=== PATIENT | male | born 1950 | race Caucasian/White ===

== ENCOUNTER → 2018-01-30 16:23 | Outpatient (CLI) | payer MEDICARE, SELFPAY ==
[2018-01-30 17:06] LABS: Absolute Lymphocyte Count 2.24 X10^3/ul (0.83-4.51); Absolute Neutrophil Count 3.9 X10^3/uL (2.0-7.7); Basophil# 0.03 X10^3/uL; Basophil% 0.4 % (0-1); Eosinophils% 4.2 % (0-5); Hematocrit 41.7 % (40-54); Hemoglobin 13.7 g/dl (13.0-16.5); Lymphocyte # 2.24 X10^3/ul (4.0); Lymphocyte % 31.5 % (19-41); Mean Corp Hgb Conc 32.9 g/gl (32-36); Mean Corpuscular Hgb 31.7 pg (27.0-32.0); Mean Corpuscular Volume 96.5 fL (80-94); Mean Platelet Vol. 9.3 fl (6.2-12.0); Monocyte# 0.68 X10^3/uL; Monocyte% 9.6 % (0-10); Neutrophil # 3.87 X10^3/uL (2.7-7.7); Neutrophil % 54.3 % (47-70); Platelet Count 167 K/mm3 (150-450); RBC Distribution Width CV 13.5 % (11.6-14.6); RBC Distribution Width SD 48.2 fl (35.1-43.9); Red Blood Count 4.32 M/mm3 (4.6-6.2); White Blood Count 7.1 K/mm3 (4.4-11.0)
[2018-01-30 17:40] LABS: ALB/GLOB Ratio 0.8 RATIO (0.9-2.4); AST(SGOT) 31 U/L (15-37); Alanine Aminotransfer ALT/SGPT 28 U/L (16-61); Albumin, Serum 3.3 g/dL (3.2-5.0); Alkaline Phosphatase 126 U/L (45-117); Anion Gap 7 (5-15); BUN 12 mg/dL (7-18); BUN/Creat Ratio 11.4 RATIO (10-20); Calcium,Total 8.8 mg/dL (8.5-10.1); Chloride 104 mmol/L (98-107); Creatinine, Serum 1.05 mg/dL (0.70-1.30); EST Glomerular Filtration Rate 74 mL/min (>60); Est Glom Filt Rate - Afr Amer 90 mL/min (>60); Globulin 4.1 g/dL (2.2-4.2); Glucose 94 mg/dL (74-106); PSA,Total - Annual Screen 1.22 ng/mL (0.00-4.00); Potassium 4.7 mmol/L (3.5-5.1); Protein, Total 7.4 g/dL (6.4-8.2); Sodium Level 138 mmol/L (136-145); Thyroid Stim Hormone (TSH) 0.67 uIU/mL (0.358-3.74)
[2018-01-30 17:48] LABS: POSITIVE COUNT NO; POSITIVE DIFFERENTIAL NO; POSITIVE MORPHOLOGY NO
== END ==
PROVIDERS: Visit Provider Family Medicine Geriatric Medicine
DX: I10 Essential (primary) hypertension (principal); E23.6 Other disorders of pituitary gland; Z12.5 Encounter for screening for malignant neoplasm of prostate
CPT/HCPCS: 36415; 80053; 84153; 84403; 84443; 85025; G0103

== ENCOUNTER → 2018-09-04 | Outpatient (CLI) | payer MEDICARE, SELFPAY ==
[2018-09-04 17:24] LABS: COTININE Drug Screen Positive (<200 ng/mL)
== END | disposition home or self-care (01) ==
LOC: POLAB3 14:26
PROVIDERS: Visit Provider Family Medicine Geriatric Medicine
DX: F17.200 Nicotine dependence, unspecified, uncomplicated (principal)
CPT/HCPCS: 80307

== ENCOUNTER → 2018-10-28 | Outpatient (CLI) | payer MEDICARE, SELFPAY ==
[2018-10-28 18:13] LABS: COTININE Drug Screen Negative (<200 ng/mL)
== END | disposition home or self-care (01) ==
LOC: LABSPEC 14:11
PROVIDERS: Visit Provider Family Medicine Geriatric Medicine
DX: F17.200 Nicotine dependence, unspecified, uncomplicated (principal)
CPT/HCPCS: 80307

== ENCOUNTER → 2018-11-27 14:00 | Outpatient (CLI) | payer MEDICARE, SELFPAY ==
--- NOTE | 2018-11-27 14:02 | RAD_ITS ---
STUDY: X-RAY - LEFT KNEE REASON FOR EXAM: Male, 68 years old. Knee pain TECHNIQUE: 4 view(s) of the knee. COMPARISON: None. FINDINGS: Normal visualized distal femur. Normal visualized proximal tibia and fibula. Normal proximal tibiofibular articulation. There is no demonstrated fracture. Satisfactory appearance of total knee arthroplasty. No evidence for loosening. The soft tissue structures are unremarkable. RAD/Knee 4 or More Views IMPRESSION: Normal appearance of total knee arthroplasty. No acute abnormalities. Electronically Signed: Mauri Jones MD at 16:08 EDT , Service support ,
--- NOTE | 2018-11-27 14:02 | RAD_ITS ---
STUDY: X-RAY - RIGHT KNEE REASON FOR EXAM: Male, 68 years old. Knee pain. TECHNIQUE: 4 view(s) of the knee. COMPARISON: None. FINDINGS: Normal visualized distal femur. Normal visualized proximal tibia and fibula. Normal proximal tibiofibular articulation. There is no demonstrated fracture. Moderate narrowing of the medial femorotibial compartment. Normal lateral femorotibial compartment. Normal patellofemoral articulation. There is no demonstrated joint effusion. The soft tissue structures are unremarkable. RAD/Knee 4 or More Views IMPRESSION: No acute abnormality. Moderate narrowing of the medial tibiofemoral compartment. Electronically Signed: Mauri Jones MD at 16:09 EDT , Service support ,
== END ==
PROVIDERS: Family Provider Family Medicine Geriatric Medicine; PCP Family Medicine Geriatric Medicine; Referring Provider Physician Assistant; Visit Provider Physician Assistant
DX: M25.561 Pain in right knee (principal); M25.562 Pain in left knee
CPT/HCPCS: 73564

== ENCOUNTER → 2018-12-29 | Outpatient (CLI) | payer MEDICARE, SELFPAY ==
--- NOTE | 2018-12-29 08:45 | AAVD_ITS ---
Reason For Study: AAA w/out rupture Aorta Measurements Aorta Doppler Measurements Proximal aorta measures2.5 x 2.66cm. in cross- Peak systolic flow velocities within the proximal sectional axis. aorta measure 61.6 cm/sec. Proximal aorta measures2.5cm. in longitudinal Peak systolic flow velocities within the mid aorta axis. measure 48.5 cm/sec. Mid aorta measures3.14 x 3.49cm. in cross- Peak systolic flow velocities within the distal sectional axis. aorta measure 50.5 cm/sec. Mid aorta measures2.41cm. in longitudinal axis. Distal aorta measures3.2 x 3.23cm. in cross- sectional axis. Distal aorta measures3.2cm. in longitudinal axis. Left Iliac Artery Left iliac artery measures 1.35 cm. in the longitudinal axis. Left iliac artery measures 1.31 x 1.42 cm. in the cross-sectional axis. Peak systolic velocity in the left iliac artery measures 61.4 cm/sec. Right Iliac Artery Right iliac artery measures 1.65 x 1.65 cm. in the cross-sectional axis. Peak systolic velocity in the right iliac artery measures 80.1 cm/sec. Right iliac artery measures 1.46 cm. in the longitudinal axis. Procedure Aorta IVC Iliac vasculature or bypass grafts 16493. Technically difficult study due to gas and body habitus. Exam performed in department. Interpretation Summary 1. 3.5cm aortic aneurysm. Ordering Physician: Armando Cruz Referring Physician: Vaughn Garcia Chi Performed By: Gwen Lui, MARIMAR, RVT
== END | disposition home or self-care (01) ==
LOC: CVS 08:42
PROVIDERS: Family Provider Family Medicine Geriatric Medicine; PCP Family Medicine Geriatric Medicine; Referring Provider Surgery Vascular Surgery; Visit Provider Surgery Vascular Surgery
DX: I71.4 Abdominal aortic aneurysm, without rupture (principal); I11.9 Hypertensive heart disease without heart failure; E78.70 Disorder of bile acid and cholesterol metabolism, unspecified; F17.200 Nicotine dependence, unspecified, uncomplicated
CPT/HCPCS: 93978

== ENCOUNTER → 2019-01-27 | Outpatient (CLI) | payer MEDICARE, SELFPAY ==
[2019-01-27 11:58] LABS: Amphetamine Urine VISTA NEGATIVE (<1000 ng/mL); Barbiturate Urine VISTA NEGATIVE (< 200 ng/mL); Benzodiazepine Urine VISTA NEGATIVE (< 200 ng/mL); Cocaine Urine VISTA NEGATIVE (< 300 ng/mL); Ecstacy Urine VISTA POSITIVE (< 500 ng/mL); Methadone Urine VISTA NEGATIVE (< 300 ng/mL); PCP Urine VISTA NEGATIVE (< 25 ng/mL); THC Urine VISTA NEGATIVE (< 50 ng/mL); Vista UDS pH Range 6
== END | disposition home or self-care (01) ==
LOC: LAB 11:22
PROVIDERS: Family Provider Family Medicine Geriatric Medicine; PCP Family Medicine Geriatric Medicine; Referring Provider Anesthesiology Pain Medicine; Visit Provider Anesthesiology Pain Medicine
DX: F11.20 Opioid dependence, uncomplicated (principal)
CPT/HCPCS: 80307

== ENCOUNTER → 2019-02-18 | Outpatient (CLI) | payer MEDICARE, SELFPAY ==
[2019-02-18 12:52] LABS: Absolute Lymphocyte Count 1.98 X10^3/uL (0.83-4.51); Basophil# 0.04 X10^3/uL; Basophil% 0.5 % (0-1); Eosinophil# 0.18 X10^3/uL; Eosinophils% 2.2 % (0-5); Hematocrit 48.5 % (40-54); Lymphocyte # 1.98 X10^3/ul (4.0); Lymphocyte % 24.4 % (19-41); Mean Corp Hgb Conc 30.9 g/dL (32-36); Mean Corpuscular Hgb 28.8 pg (27.0-32.0); Mean Corpuscular Volume 93.3 fL (80-94); Mean Platelet Vol. 9.2 fl (6.2-12.0); Monocyte# 0.95 X10^3/uL; Monocyte% 11.7 % (0-10); NRBC Flagged by Analyzer 0 % (0-5); Neutrophil # 4.96 X10^3/uL (2.7-7.7); Platelet Count 245 K/mm3 (150-450); RBC Distribution Width CV 13.8 % (11.6-14.6); RBC Distribution Width SD 47.4 fl (35.1-43.9); White Blood Count 8.1 K/mm3 (4.4-11.0)
[2019-02-18 13:12] LABS: ALB/GLOB Ratio 0.8 RATIO (0.9-2.4); AST(SGOT) 17 U/L (15-37); Alanine Aminotransfer ALT/SGPT 21 U/L (16-61); Albumin, Serum 3.3 g/dL (3.2-5.0); Alkaline Phosphatase 105 U/L (45-117); Anion Gap 6 (5-15); BUN 12 mg/dL (7-18); BUN/Creat Ratio 7.9 RATIO (10-20); Calcium,Total 8.7 mg/dL (8.5-10.1); Chloride 106 mmol/L (98-107); Creatinine, Serum 1.52 mg/dL (0.70-1.30); EST Glomerular Filtration Rate 48 mL/min (>60); Est Glom Filt Rate - Afr Amer 59 mL/min (>60); Globulin 4.1 g/dL (2.2-4.2); Glucose 80 mg/dL (74-106); PSA,Total - Annual Screen 2.69 ng/mL (0.00-4.00); Potassium 4.5 mmol/L (3.5-5.1); Protein, Total 7.4 g/dL (6.4-8.2); Sodium Level 139 mmol/L (136-145); Thyroid Stim Hormone (TSH) 1.47 uIU/mL (0.358-3.74)
== END | disposition home or self-care (01) ==
LOC: POLAB3 11:27
PROVIDERS: Family Provider Family Medicine Geriatric Medicine; PCP Family Medicine Geriatric Medicine; Visit Provider Family Medicine Geriatric Medicine
DX: E55.9 Vitamin D deficiency, unspecified (principal); R53.83 Other fatigue; F52.8 Other sexual dysfunction not due to a substance or known physiological condition; Z12.5 Encounter for screening for malignant neoplasm of prostate
CPT/HCPCS: 36415; 80053; 82306; 84153; 84403; 84443; 85025; G0103

== ENCOUNTER → 2019-06-11 16:06 | Outpatient (CLI) | payer MEDICARE, SELFPAY ==
[2018-11-27 14:25] VITALS: BMI 23.0
[2019-06-11 17:21] LABS: Absolute Lymphocyte Count 2.07 X10^3/uL (0.83-4.51); Absolute Neutrophil Count 6.4 X10^3/uL (2.0-7.7); Basophil# 0.04 X10^3/uL; Basophil% 0.4 % (0-1); Eosinophil# 0.09 X10^3/uL; Eosinophils% 0.9 % (0-5); Hematocrit 44.5 % (40-54); Hemoglobin 14.4 g/dL (13.0-16.5); Lymphocyte # 2.07 X10^3/ul (4.0); Lymphocyte % 21.3 % (19-41); Mean Corp Hgb Conc 32.4 g/dL (32-36); Mean Corpuscular Hgb 28.6 pg (27.0-32.0); Mean Corpuscular Volume 88.5 fL (80-94); Monocyte# 1.07 X10^3/uL; NRBC Flagged by Analyzer 0 % (0-5); Neutrophil # 6.41 X10^3/uL (2.7-7.7); Neutrophil % 66.1 % (47-70); Platelet Count 239 K/mm3 (150-450); RBC Distribution Width CV 19.9 % (11.6-14.6); RBC Distribution Width SD 63.5 fl (35.1-43.9); Red Blood Count 5.03 M/mm3 (4.6-6.2); White Blood Count 9.7 K/mm3 (4.4-11.0)
[2019-06-11 17:32] LABS: Anion Gap 7 (5-15); BUN 15 mg/dL (7-18); BUN/Creat Ratio 10.4 RATIO (10-20); Calcium,Total 8.5 mg/dL (8.5-10.1); Chloride 110 mmol/L (98-107); Creatinine, Serum 1.44 mg/dL (0.70-1.30); EST Glomerular Filtration Rate 52 mL/min (>60); Est Glom Filt Rate - Afr Amer 62 mL/min (>60); Glucose 128 mg/dL (74-106); Potassium 4.4 mmol/L (3.5-5.1); Sodium Level 138 mmol/L (136-145)
== END ==
PROVIDERS: PCP Family Medicine Geriatric Medicine; Visit Provider Family Medicine Geriatric Medicine
DX: F05 Delirium due to known physiological condition (principal)
CPT/HCPCS: 36415; 80048; 85025

== ENCOUNTER → 2019-09-15 13:45 | Outpatient (CLI) | payer MEDICARE, MEDICAID, SELFPAY ==
[2018-11-27 14:25] VITALS: BMI 23.0
[2019-09-15 14:58] LABS: Amphetamine Urine VISTA NEGATIVE (<1000 ng/mL); Barbiturate Urine VISTA NEGATIVE (< 200 ng/mL); Benzodiazepine Urine VISTA POSITIVE (< 200 ng/mL); Cocaine Urine VISTA NEGATIVE (< 300 ng/mL); Ecstacy Urine VISTA POSITIVE (< 500 ng/mL); Methadone Urine VISTA NEGATIVE (< 300 ng/mL); PCP Urine VISTA NEGATIVE (< 25 ng/mL); THC Urine VISTA NEGATIVE (< 50 ng/mL); Vista UDS pH Range 6
== END ==
PROVIDERS: PCP Family Medicine Geriatric Medicine; Referring Provider Anesthesiology Pain Medicine; Visit Provider Anesthesiology Pain Medicine
DX: F11.20 Opioid dependence, uncomplicated (principal)
CPT/HCPCS: 80307

== ENCOUNTER → 2020-07-20 14:16 | Outpatient (CLI) | payer MEDICARE, MEDICAID, SELFPAY ==
[2018-11-27 14:25] VITALS: BMI 23.0
[2020-07-20 15:03] LABS: Amphetamine Urine VISTA NEGATIVE (<1000 ng/mL); Barbiturate Urine VISTA NEGATIVE (< 200 ng/mL); Benzodiazepine Urine VISTA NEGATIVE (< 200 ng/mL); Cocaine Urine VISTA NEGATIVE (< 300 ng/mL); Ecstacy Urine VISTA POSITIVE (< 500 ng/mL); Methadone Urine VISTA NEGATIVE (< 300 ng/mL); PCP Urine VISTA NEGATIVE (< 25 ng/mL); THC Urine VISTA NEGATIVE (< 50 ng/mL); Vista UDS pH Range 7
== END ==
PROVIDERS: Referring Provider Anesthesiology Pain Medicine; Visit Provider Anesthesiology Pain Medicine
DX: F11.20 Opioid dependence, uncomplicated (principal)
CPT/HCPCS: 80307

== ENCOUNTER → 2020-10-12 14:10 | Outpatient (CLI) | payer MEDICARE, MEDICAID, SELFPAY ==
--- NOTE | 2020-10-12 14:12 | RAD_ITS ---
STUDY: X-RAY - LUMBAR SPINE REASON FOR EXAM: Male, 70 years old. BACK PAIN FALL TECHNIQUE: 3 view(s) of the lumbar spine were obtained. COMPARISON: None FINDINGS: Normal lumbar lordosis. There is no substantial scoliosis. There is a normal alignment of the vertebrae. There is multilevel endplate spondylosis of the lumbar vertebrae. There is multi-level degenerative disc disease with multi-level disc space narrowing. There is no demonstrated fracture. The soft tissue structures are unremarkable. RAD/Lumbar Spine 2 or 3 Views IMPRESSION: Moderate multilevel degenerative disc disease Electronically Signed: Layton Garcia DO at 23:25 EDT Tel , Service support ,
== END ==
PROVIDERS: Referring Provider Anesthesiology Pain Medicine; Visit Provider Anesthesiology Pain Medicine
DX: M54.9 Dorsalgia, unspecified (principal)
CPT/HCPCS: 72100

== ENCOUNTER → 2021-10-31 | Outpatient (CLI) | payer MEDICARE, MEDICAID, SELFPAY ==
--- NOTE | 2021-10-31 14:57 | RAD_ITS ---
HISTORY: Back pain, chronic neck pain. TECHNIQUE: Cervical spine 4 views. COMPARISON: 05/11/2015. FINDINGS: VERTEBRAE: Vertebral body heights maintained. No acute fracture identified. ALIGNMENT: Flowing anterior osteophytes extending from C2-3 to C5-6. Straightening of the cervical lordosis. INTERVERTEBRAL DISCS: Disc heights preserved. SOFT TISSUES: No significant prevertebral soft tissue swelling. RAD/Cerv Spine 2 or 3 Views IMPRESSION: No acute fracture or dislocation identified in the cervical spine. Chronic flowing anterior osteophytes which can be seen with diffuse idiopathic skeletal hyperostosis. Electronically Signed: Nikky Wells MD at 9:03 EDT ,
== END | disposition home or self-care (01) ==
LOC: LAB 14:36 → RAD 14:44
PROVIDERS: Referring Provider Anesthesiology Pain Medicine; Visit Provider Anesthesiology Pain Medicine
DX: M54.12 Radiculopathy, cervical region (principal)
CPT/HCPCS: 72040

== ENCOUNTER → 2021-12-29 | Outpatient (CLI) | payer MEDICARE, MEDICAID, SELFPAY | END | disposition home or self-care (01) | LOC: LAB 16:01 | PROVIDERS: Referring Provider Anesthesiology Pain Medicine; Visit Provider Anesthesiology Pain Medicine | DX: F11.20 Opioid dependence, uncomplicated (principal) ==

== ENCOUNTER → 2022-01-24 | Outpatient (CLI) | payer MEDICARE, MEDICAID, SELFPAY | END | disposition home or self-care (01) | LOC: LAB 15:51 | PROVIDERS: Referring Provider Anesthesiology Pain Medicine; Visit Provider Anesthesiology Pain Medicine | DX: F11.20 Opioid dependence, uncomplicated (principal) | CPT/HCPCS: 80307 ==

== ENCOUNTER → 2022-10-11 | Outpatient (CLI) | payer MEDICARE, MEDICAID, SELFPAY ==
[2022-10-11 16:48] LABS: Amphetamine Urine VISTA NEGATIVE (<1000 ng/mL); Barbiturate Urine VISTA NEGATIVE (< 200 ng/mL); Benzodiazepine Urine VISTA NEGATIVE (< 200 ng/mL); Cocaine Urine VISTA NEGATIVE (< 300 ng/mL); Ecstacy Urine VISTA POSITIVE (< 500 ng/mL); Methadone Urine VISTA NEGATIVE (< 300 ng/mL); PCP Urine VISTA NEGATIVE (< 25 ng/mL); THC Urine VISTA NEGATIVE (< 50 ng/mL); Vista UDS pH Range 7
== END | disposition home or self-care (01) ==
LOC: LAB 14:45
PROVIDERS: Referring Provider Anesthesiology Pain Medicine; Visit Provider Anesthesiology Pain Medicine
DX: F11.20 Opioid dependence, uncomplicated (principal)
CPT/HCPCS: 80307

== ENCOUNTER 2024-09-12 23:44 | Emergency (ER) | payer MEDICARE, MEDICAID, SELFPAY ==
[2024-09-12 23:46] VITALS: BP 141/70; PULSE 102; RESP 22; TEMP 36.3; O2SAT 93; O2SAT 97; BMI 28.0
--- NOTE | 2024-09-12 23:53 | EDS_ITS ---
HPI History of Present Illness Chief Complaint: Fall Detail of Chief Complaint: Fall from bed striking head with altered level of consciousness Informant: patient and EMS ([facility] per squad 13) Onset/Context/Timing Onset: Hours Mechanism/Context: Blunt Injury and Fall (Out of bed hitting the heat register) Location of pain/injuries: - ([place]) Quality of Pain: Dull and Aching Location: [place] Current Severity: Mild Maximum Severity: Moderate Worsened by: Palpation also pain to patient's spinous processes of C6 and C7 Relieved by: Remaining still Associated Symptoms Associated Symptoms: Negative for Parasthesias, Weakness, Loss of function, Loss of consciousness or Amnesia Length of loss of consciousness: Per patient negative. Per EMS negative Narrative Narrative: Patient is a 74-year-old gentleman. He has history of hypercholesterolemia, lung disease, anxiety and arthritic complaints. Will need to review [facility] notes since he is not a good informant. He remembers falling out of bed. At the back of his head. Complains of pain in the back of his head. He denies double vision blurred vision loss of vision. Denies trouble with speech or swallowing. He is complaining of thirst. He denied neck pain. He denied paresthesia, anesthesia Medicus. Night pain in his upper lower extremity exam area and he denied chest pain or shortness of breath. [place] upper or lower back pain. He arrived by EMS with c-collar immobilization. Prior similar symptoms: No Recent Illness/Hospitalization: No [facility] Medical History Major depression Anxiety Heart disease GERD (gastroesophageal reflux disease) HTN (hypertension) Home Medications ?Medication ?Instructions ?Recorded ?Last Taken ?Type aspirin 81 mg tablet,delayed 81 mg PO DAILY 11/27/18 U nknown History release (Adult Low Dose Aspirin) atorvastatin 40 mg tablet (Lipitor) 80 mg PO DAILY 12/08 Unknown History clonazepam 2 mg tablet 2 mg PO QHS 11/27/18 Unknown History gabapentin 100 mg capsule 300 mg PO TIDCM 11/27/18 Unk nown History levetiracetam 500 mg tablet 1,000 mg PO BID 11/27/18 U nknown History (Keppra) omeprazole 40 mg capsule,delayed 20 mg PO DAILY Unknown History release quetiapine 300 mg tablet 250 mg PO BID 11/27/18 Unkno wn History calcium carbonate (Tums) 200 mg PO DAILY 09/12/24 Unk nown History clonazepam 1 mg tablet 1 mg PO DAILY 09/12/24 Unkno wn History icosapent ethyl 1 gram capsule 2 g PO BID 09/12/24 Unk nown History latanoprost 0.005 % eye drops 1 drp ophthalmic (eye) D AILY 09/12/24 Unknown History magnesium oxide 400 mg (241.3 mg 400 mg PO BID 5 Unknown History magnesium) tablet metformin 500 mg tablet 500 mg PO DAILY 09/12/24 Unk nown History multivitamin 1 tab PO DAILY 09/12/24 Unkn own History cholecalciferol (vitamin D3) 50 50 mcg PO DAILY Unknown History mcg (2,000 unit) tablet hydrocodone-acetaminophen 5-325mg 1 tab PO Q6H PRN PRN Pain 3 days 09/13/24 Unknown Rx 5mg-325mg #10 TABLETS oxycodone-acetaminophen 5 mg-325 1 tab PO TID 09/13/24 Unknown History mg tablet Allergy/AdvReac Type Severity Reaction Status Date / Time No Known Allergies Allergy Verified 03/12/14 10:55 Social History Smoking Status: Former smoker ROS ROS ED Constitutional Constitutional ED: Denies chills, fever(s) or subjective Eyes Eyes: Denies blurry vision ENT ENT ED: Reports other Details: Denies epistaxis or difficulty breathing. ; Denies ear pain, rhinorrhea or sore throat Cardiovascular Cardiovascular: Denies chest pain, palpitations or paroxysmal nocturnal dyspnea Respiratory/Chest Respiratory/Chest: Denies cough, dyspnea, dyspnea on exertion or paroxysmal nocturnal dyspnea Gastrointestinal Gastrointestinal: Denies abdominal pain, nausea or vomiting Musculoskeletal Musculoskeletal: Denies arthralgias, back pain, myalgias or neck pain Integumentary Denies rash Neurologic Neurologic: Reports headache(s); Denies paresthesias or weakness Hematologic/Lymphatic Hematologic/Lymphatic: Denies easy bleeding or easy bruising EXAM Physical Exam Const Vital Signs: 09/12/24 23:46 09/12/24 23:53 Temperature 97.3 F L Temperature Source Oral Pulse Rate 102 H Respiratory Rate 22 H Respiratory Effort Normal Non-Labored Respiratory Depth Normal Respiratory Pattern Normal Blood Pressure 141/70 H Blood Pressure Mean 93 Pulse Ox 93 Oxygen Delivery Method Room Air Room Air Vital signs reveal elevated heart rate and slight elevation of blood pressure. He is not hypoxic. Positive well nourished and well developed General Appearance ED: well developed and NAD HEENT Reports TM's clear HEENT Narrative: Patient has tenderness to palpation of the occiput. There is no palpable pression. There is no obvious trauma. There is no clinical findings of basilar skull fracture. atraumatic and tenderness Nose: Negative for septum abnormal Tympanic Membrane ED: Yes TM's clear Eyes PERRL and EOMs intact bilaterally General Eye ED: Yes other Other Details: There is no subconjunctival hemorrhage. There is no hyperesthesia infraorbital nerve. There is no step-off with palpation of the infraorbital rim. There is no evidence of entrapment with upward gaze. There is no nystagmus. Neck Neck Narrative: Tenderness spinous process of C6 and 7. Collar was reapplied. He was not has to move his neck. General: tenderness Chest Wall inspection of chest normal and palpation of chest normal Resp normal respiratory effort and clear to auscultation bilaterally Cardio regular rhythm, S1 normal heart sound, S2 normal heart sound and no murmurs Rate: regular rate GI normal to inspection, nondistended, normoactive bowel sounds, non-tender, non- distended and no masses Auscultation: normoactive bowel sounds Palpation: soft Back/Spine normal to inspection and no thoracic nor lumbar tenderness Extremity normal to inspection and full ROM General Extremety ED: Negative for deformity, edema or tenderness General Extremity: Negative for deformity or edema Neuro No oriented x3, CN's II-XII intact bilaterally, moves all extremities, no focal motor deficits and no sensory deficits noted [place] Coma Scale: document GCS findings Spontaneous Obeys Commands Confused 14 Sensorium / Orientation: alert Motor Exam: strength 5/5 throughout Deep Tendon Reflexes: Rt Triceps (C7): 1+, Lt Triceps (C7): 1+, Rt Biceps (C5, C6): 1+, Lt Biceps (C5, C6): 1+, Rt Brachioradialis (C6): 1+, Lt Brachioradialis (C6): 1+, Rt Patellar (L4): 1+, Lt Patellar (L4): 1+, Rt Ankle (S1): 1+ and Lt Ankle (S1): 1+ Deep Tendon Reflexes Back: Rt Patellar (L4): 1+, Lt Patellar (L4): 1+, Rt Ankle (S1): 1+ and Lt Ankle (S1): 1+ Plantar Reflex: Downgoing: bilateral Psych mental status grossly normal and thought process normal Skin no rashes or lesions noted, no wounds, No skin turgor normal and no jaundice MDM MDM MDM Narrative Medical decision making narrative: With GCS of 14 and neck pain will need to obtain CT of the head to evaluate for subdural hematoma, epidural hematoma, traumatic subarachnoid hemorrhage and intraparenchymal bleed. Because of the C-spine tenderness film was obtained to evaluate for contusion versus strain versus fracture doubt dislocation since he is neurologically intact. Since patient clinically appears dehydrated and is complaining of thirst BMP was obtained to assess renal function, electrolytes as well as CO2 anion gap. Patient's last ER visit was February 2014 for schizophrenia. Outpatient visit to Dr. Obregon pain management for osteoarthritis of his knees. History & Record Review Additional record(s) reviewed:: Prior inpatient record, Prior outpatient record and Prior labs Lab Data Attestation: I reviewed the patient's lab results. Lab results narrative: White count is slightly elevated 11.4 thousand. H&H is 11.8 and 35.6. Indices are normal. Electrolyte panel is unremarkable. Glucose slightly elevated at 139 with a normal CO2 anion gap. Estimated GFR 72. BUN to creatinine ratio was less than 15-1. Most recent H&H is from 2019. There is approximate 2 g drop since that time. With a normal BUN to creatinine ratio this would rule against acute GI bleed. Labs: Laboratory Results - last 24 hr 09/13/24 00:00 WBC 11.4 H RBC 3.92 L Hgb 11.8 L Hct 35.6 L MCV 90.8 MCH 30.1 MCHC 33.1 RDW Std Deviation 46.5 H RDW Coeff of Ernesto 14.1 Plt Count 214 MPV 8.7 Sodium 137 Potassium 4.6 Chloride 104 Carbon Dioxide 21.2 Anion Gap 12 BUN 16 Creatinine 1.07 Estim Creat Clear Calc 66.92 Est GFR (MDRD) Non-Af 72 BUN/Creatinine Ratio 14.7 Glucose 139 H Calcium 9.0 Radiography Diagnostic Testing: Clinical Impression(s) from Imaging Studies Cervical Spine CT 09/13/24 00:00 IMPRESSION: Nondisplaced fracture of the anterior bridging osteophyte at C6-C7 without significant surrounding soft tissue edema and swelling. No associated instability. Findings can be better evaluated by means of MRI on elective basis to determine the acute significance of this finding. Findings were discussed with Chelita MICHAELS in the ER at the time of interpretation. Reading Location: [place] [id number] C-minus of the head reveals no evidence of fracture, subdural hematoma, epidural hematoma, traumatic subarachnoid hemorrhage or parenchymal bleed. There is no fluid noted in the sinuses. There is chronic changes noted. CT of the cervical spine reveals significant arthritic changes. There is an area of radiolucency osteophyte C6-C7. There is prevertebral soft tissue swelling noted. There is no evidence of subluxation or dislocation. The images were reviewed by me at 0024. Awaiting formal read by radiologist. Management Discussion w/another healthcare provider: Post Acute Care Registered Nurse (Spoke with Dr. Seo and who is on-call for no doc. He is a partner of Dr. Nuñez. She will leave Dr. Nuñez a note. Plan is collar for immobilization and outpatient follow-up since this is a stable fracture) and Radiologist (Radiologist did call and confirmed my suspicion that there is a fracture of the osteophyte of the sixth/C7.) Discharge Plan Triage Chief Complaint: Fall Other Complaint: Alt LOC ED Provider: Bala Kenyon Dx/Rx/DC Orders Clinical Impression: C6 cervical fracture, Concussion, [place] coma scale score 13-15, at hospital admission, Acute cervical myofascial strain, Sinus tachycardia, Elevated blood- pressure reading without diagnosis of hypertension, Nondiabetic hyperglycemia, Increased thirst Instructions: Neck Fracture (Cervical Fracture), ED Concussion, ED Neck Sprain or Strain Prescriptions: New hydrocodone-acetaminophen 5-325 mg tablet 1 tab PO Q6H PRN PRN (Reason: Pain) 3 Days Qty: 10 0RF No Action aspirin [Adult Low Dose Aspirin] 81 mg tablet,delayed release (DR/EC) 81 mg PO DAILY atorvastatin [Lipitor] 40 mg tablet 80 mg PO DAILY clonazepam 2 mg tablet 2 mg PO QHS gabapentin 100 mg capsule 300 mg PO TIDCM levetiracetam [Keppra] 500 mg tablet 1,000 mg PO BID omeprazole 40 mg capsule,delayed release(DR/EC) 20 mg PO DAILY quetiapine 300 mg tablet 250 mg PO BID calcium carbonate [Tums] 200 mg calcium (500 mg) tablet,chewable 200 mg PO DAILY clonazepam 1 mg tablet 1 mg PO DAILY latanoprost 0.005 % drops 1 drp ophthalmic (eye) DAILY icosapent ethyl 1 gram capsule 2 g PO BID multivitamin Tablet 1 tab PO DAILY metformin 500 mg tablet 500 mg PO DAILY magnesium oxide 400 mg (241.3 mg magnesium) tablet 400 mg PO BID oxycodone-acetaminophen 5-325 mg tablet 1 tab PO TID cholecalciferol (vitamin D3) 50 mcg (2,000 unit) tablet 50 mcg PO DAILY Primary Care Provider: GINA THOMPSON Referrals: Clifton Brennan MD [Med Staff - Active Staff] - 3-5 Days Care Physician,No Primary [Non-Staff] - Activity Restrictions/Additional Instructions: Follow-up with [facility] doctor as needed regarding concussion Contact Dr. Brennan's office regarding fracture, this is a stable fracture. Apply ice to the back of the neck 6 times a day Print Language: Salvadorean Disposition Disposition: Senior Living Facility Discharge Location: [facility]
--- NOTE | 2024-09-13 | CT_ITS ---
PROCEDURE: SPINE CERVICAL WITHOUT CONTRAS 09/13/2024 REASON FOR EXAM: INJURY/PAIN TECHNIQUE: Cervical spine CT without contrast. Coronal and Sagittal reconstruction series were provided. One or more dose reduction techniques were used (e.g., Automated exposure control, adjustment of the mA and/or kV according to patient size, use of iterative reconstruction technique RADIATION DOSE SUMMARY: DLP: 320 mGycm COMPARISON: None. FINDINGS: Nondisplaced fracture of the anterior bridging osteophyte at C6-C7 without significant surrounding soft tissue edema and swelling. No associated instability. There are diffuse spondylotic changes. Findings are demonstrated to by diffuse disc space narrowing, osteophyte formation and degenerative endplate sclerosis. There is diffuse facet joint arthropathy with secondary bilateral neural foramina narrowing. No other fracture or dislocation is seen. No aggressive lytic or blastic bony lesion is noted. CT/Spine Cervical without Contras IMPRESSION: Nondisplaced fracture of the anterior bridging osteophyte at C6-C7 without sign ificant surrounding soft tissue edema and swelling. No associated instability. Findings can be better evaluated by means of MRI on elective basis to determine the acute significance of this finding. Findings were discussed with Chelita MICHAELS in the ER at the time of interpretation . Reading [facility]
--- NOTE | 2024-09-13 | CT_ITS ---
PROCEDURE: BRAIN/HEAD WITHOUT CONTRAST 09/13/2024 REASON FOR EXAM: INJURY/PAIN TECHNIQUE: Head CT without intravenous contrast. Coronal and Sagittal reconstruction series were provided. One or more dose reduction techniques were used (e.g., Automated exposure control, adjustment of the mA and/or kV according to patient size, use of iterative reconstruction technique. RADIATION DOSE SUMMARY: DLP: 380 mGycm COMPARISON: None. FINDINGS: Mild diffuse cortical atrophy, commensurate with the patient's age. Scattered hypodense foci in the periventricular and subcortical white matter suggestive of chronic ischemic white matter disease. Normal size of the ventricles and extra-axial spaces for the patient's age. Normal basal ganglia and thalami. Normal brainstem. Normal cerebellum. There is no demonstrated extra-axial, intraparenchymal, or intraventricular hemorrhage. There are no findings of an acute ischemic infarction. Normal calvarium. There is no demonstrated fracture. Normal soft tissue structures. Normal visualized paranasal sinuses CT/Brain/Head without Contrast IMPRESSION: No CT evidence for acute brain abnormality. Reading Location[facility]
[2024-09-13 00:20] LABS: Hematocrit 35.6 % (40-54); Hemoglobin 11.8 g/dL (13.0-16.5); Mean Corp Hgb Conc 33.1 g/dL (32-36); Mean Corpuscular Hgb 30.1 pg (27.0-32.0); Mean Corpuscular Volume 90.8 fL (80-94); Mean Platelet Vol. 8.7 fl (6.2-12.0); Platelet Count 214 K/mm3 (150-450); RBC Distribution Width CV 14.1 % (11.6-14.6); RBC Distribution Width SD 46.5 fl (35.1-43.9); Red Blood Count 3.92 M/mm3 (4.6-6.2); White Blood Count 11.4 K/mm3 (4.4-11.0)
[2024-09-13 00:23] LABS: Anion Gap 12 (5-15); BUN 16 mg/dL (4-19); BUN/Creat Ratio 14.7 RATIO (10-20); Carbon Dioxide 21.2 mmol/L (21.0-32.0); Chloride 104 mmol/L (98-108); Creatinine, Serum 1.07 mg/dL (0.70-1.20); EST Glomerular Filtration Rate 72 (>60); Estimated Creatinine Clearance 66.92 ml/min (50-250); Glucose 139 mg/dL (70-99); Potassium 4.6 mmol/L (3.3-5.1); Sodium Level 137 mmol/L (133-145)
[2024-09-13 01:29] VITALS: BP 95/59; PULSE 107; RESP 18; TEMP 36.7; O2SAT 94
--- NOTE | 2024-09-13 01:40 | NURSING ---
Attempated x2 to call [facility]. Nobody answered phone. unable to notify pt is returning.
--- NOTE | 2024-09-13 15:25 | PN.ORTHO_ITS ---
Subjective Subjective C spine fracture FU arrangements requested by the ED provider. Objective Data Objective Data Vital Signs: Vital Signs Temp Pulse Resp BP Pulse Ox O2 Del Method 98.1 F 107 H 18 95/59 L 94 Room Air 09/13/24 01:09/13/24 01:09/13/24 01:09/13/24 01:09/13/24 01:09/12/24 23:53 Oxygen Delivery Method Room Air Weight: 195 lb 12.328 oz Body Mass Index (BMI) 28.0 Lab / Micro Data 09/13/24 00:00 09/13/24 00:00 Labs: Laboratory Results - last 24 hr 09/13/24 00:00: WBC 11.4 H, RBC 3.92 L, Hgb 11.8 L, Hct 35.6 L, MCV 90.8, MCH 30.1, MCHC 33.1, RDW Std Deviation 46.5 H, RDW Coeff of Ernesto 14.1, Plt Count 214, MPV 8.7, Sodium 137, Potassium 4.6, Chloride 104, Carbon Dioxide 21.2, Anion Gap 12, BUN 16, Creatinine 1.07, Estim Creat Clear Calc 66.92, Est GFR (MDRD) Non-Af 72, BUN/Creatinine Ratio 14.7, Glucose 139 H, Calcium 9.0 Radiography Diagnostic Testing: Radiology Impression Brain CT 09/13/24 00:00 IMPRESSION: No CT evidence for acute brain abnormality. Reading Location: [place] [address] 09/13/24 00:00 IMPRESSION: Nondisplaced fracture of the anterior bridging osteophyte at C6-C7 without significant surrounding soft tissue edema and swelling. No associated instability. Findings can be better evaluated by means of MRI on elective basis to determine the acute significance of this finding. Findings were discussed with Chelita MICHAELS in the ER at the time of interpretation. Reading [facility] anterior osteophyte fracture, no listhesis, setting of DISH. 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 Needs acute collar, urgent outpatient follow up. Most would obtain MRI to assess involvement of posterior column. Many of these are treated surgically given the long lever arm of the fused cervical spine. Not a surgical emergency as no neuro deficits as relayed to me. He needs to see a spine surgeon trisha though - ED provider understanding.
== END 2024-09-13 02:16 | disposition skilled nursing facility (03) ==
PROVIDERS: Emergency Provider Emergency Medicine; Visit Provider Emergency Medicine
DX: S12.501A Unspecified nondisplaced fracture of sixth cervical vertebra, initial encounter for closed fracture (principal); E78.00 Pure hypercholesterolemia, unspecified; Z87.891 Personal history of nicotine dependence; S06.0X0A Concussion without loss of consciousness, initial encounter; F41.9 Anxiety disorder, unspecified; S16.1XXA Strain of muscle, fascia and tendon at neck level, initial encounter; R00.0 Tachycardia, unspecified; R73.9 Hyperglycemia, unspecified; R63.1 Polydipsia; W06.XXXA Fall from bed, initial encounter; Y92.129 Unspecified place in nursing home as the place of occurrence of the external cause; I10 Essential (primary) hypertension; Z79.899 Other long term (current) drug therapy; Z79.82 Long term (current) use of aspirin; K21.9 Gastro-esophageal reflux disease without esophagitis; F32.9 Major depressive disorder, single episode, unspecified
CPT/HCPCS: 70450; 72125; 80048; 85027; 99285; A4216

== ENCOUNTER → 2024-12-29 | Outpatient (CLI) | payer MEDICARE, MEDICAID, SELFPAY ==
--- NOTE | 2024-12-29 12:28 | MRI_ITS ---
PROCEDURE: SPINE CERVICAL (ROUTINE) 12/29/2024 REASON FOR EXAM: PAIN, DECREASED BALANCE TECHNIQUE: Procedure Code: MRISPC Modality: MR Procedure: SPINE CERVICAL (ROUTINE) Multiplanar and multisequence images were obtained without IV contrast administration. COMPARISON: CT cervical spine dated 09/13/2024 FINDINGS: Vertebrae: Cervical vertebral body heights are preserved. Bone marrow signal is unremarkable. Alignment: Normal. No spondylolisthesis. Spinal Cord: Cervical spinal cord is of normal size and signal intensities. Structures at the foramen magnum are unremarkable. C2-3: Unremarkable C3-4: Unremarkable C4-5: Mild disc desiccation. No central or foraminal stenosis C5-6: Tiny central protrusion with no central or foraminal stenosis. C6-7: Mild diffuse disc bulge with left uncovertebral and left foraminal stenosis. No central stenosis. C7-T1: Unremarkable Paraspinal soft tissues appear normal. There is no lymphadenopathy seen. MRI/Spine Cervical (Routine) IMPRESSION: Tiny central protrusion at C5-6 without any mass effect. Mild diffuse bulge at C6-7 with left uncovertebral spurring and left foraminal stenosis with mass effect on the exiting nerve root. Reading Location: [id number]
== END | disposition home or self-care (01) ==
LOC: MRI 12:26
PROVIDERS: Referring Provider Student in an Organized Health Care Education/Training Program; Visit Provider Student in an Organized Health Care Education/Training Program
DX: S12.500A Unspecified displaced fracture of sixth cervical vertebra, initial encounter for closed fracture (principal); G95.9 Disease of spinal cord, unspecified
CPT/HCPCS: 72141